=== PATIENT | male | born 1960 ===

== ENCOUNTER 2018-10-14 11:31 | Outpatient (CLI) | payer OTHER ==
[~2018-10-14] VITALS: Ht 167.6 cm; Wt 75.3 kg
== END 2018-10-14 11:40 | disposition home or self-care (01) ==
LOC: OFIC 805 11:31
DX: H90.3 Sensorineural hearing loss, bilateral (principal); H61.23 Impacted cerumen, bilateral; J31.0 Chronic rhinitis